=== PATIENT | female | born 2000 | race Caucasian/White ===

== ENCOUNTER → 2023-05-06 09:53 | Outpatient (CLI) | payer OTHER, SELFPAY | PROVIDERS: PCP Physician Assistant Medical; Visit Provider Physician Assistant Medical | DX: J35.1 Hypertrophy of tonsils (principal) | CPT/HCPCS: 87070 ==

== ENCOUNTER 2023-05-06 14:41 | Emergency (ER) | payer OTHER, SELFPAY ==
[2023-05-06 14:50] VITALS: BP 125/78; PULSE 83; RESP 16; TEMP 37.4; O2SAT 99; BMI 25.2
--- NOTE | 2023-05-06 15:59 | DI.CT.S_ITS ---
PROCEDURE: CT SOFT TISSUE NECK W CON INDICATIONS: left neck/jaw pain and swelling, +trismus TECHNIQUE: After the administration of intravenous contrast, 3.0 mm axial sections acquired from the sella to the aortic arch. Additional oblique axial 3.0 mm sections acquired through the pharynx. 3 mm thick coronal and sagittal reformats were generated. For radiation dose reduction, the following was used: automated exposure control. COMPARISON: None. FINDINGS: Image quality: Excellent. Lymph nodes: Shotty bilateral cervical adenopathy, likely reactive, left greater than right. Vessels: Visualized vasculature appears patent. Neck spaces: The oropharynx, nasopharynx, and pharynx demonstrate no mucosal lesions. The vocal cords, false vocal cords, pyriform sinuses, epiglottis, vallecula, and tongue base all appear normal. Extramucosal spaces appear unremarkable. Glands: The parotid and submandibular glands appear normal. Thyroid gland is unremarkable. Miscellaneous: Visualized brain and orbits appear normal. Lung apices appear clear. Superficial soft tissues appear normal. A BB has been placed over the area of swelling and paid, at the level of the lateral left cheek. There is no abnormality identified corresponding to the area except for minimal inflammatory change deep in the subcutaneous fat. Bones: No suspicious bony lesions. Visualized sinuses and mastoids appear unremarkable. IMPRESSION: Question mild cellulitic change involving the deep subcutaneous tissues of the left cheek. No abscess. Shotty bilateral cervical adenopathy, likely reactive, left greater than right. No other significant finding noted. Dictated by: Patrice Adam M.D. on 05/06/2023 at 17:17 Approved by: Patrice Adam M.D. on 05/06/2023 at 17:20
[2023-05-06] MEDS: ACETAMINOPHEN 325 MG TABLET 975 MG PO (16:18)
[2023-05-06] MEDS: IBUPROFEN 400 MG TABLET 800 MG PO (16:19)
[2023-05-06] MEDS: SODIUM CHLORIDE 0.9% 500 ML 1000 ML IV (16:25)
[2023-05-06 16:31] LABS: Add Manual Diff / Slide Review NO; Basophils Absolute Auto 100 /uL (0-100); Basophils Percent Auto 0.4 % (0-2); Eosinophils Absolute Auto 100 /uL (0-450); Eosinophils Percent Auto 0.4 % (2-4); Hematocrit 39.9 % (36-46); Hemoglobin 13.5 g/dL (12.0-16.0); Lymphocytes Absolute Auto 1700 /uL (1100-4500); Lymphocytes Percent Auto 11.9 % (25-40); Mean Corpuscular HGB Conc 33.7 % (30-36); Mean Corpuscular Volume 83.1 fL (80-100); Monocytes Absolute Auto 1000 /uL (0-900); Monocytes Percent Auto 6.6 % (3-14); Neutrophils Absolute Auto 11800 /uL (1500-7000); Neutrophils Percent Auto 80.7 % (50-75); Platelet Count 235 X10^3/uL (150-400); Red Blood Cell Count 4.81 X10^6/uL (4.0-5.2); Red Cell Distribution Width 12.8 % (11.6-14.8); White Blood Cell Count 14.7 X10^3/uL (4.5-11.0)
[2023-05-06 16:49] LABS: BUN Creatinine Ratio 13.8 (6-22); Blood Urea Nitrogen 11 mg/dL (7-17); Calcium 9.8 mg/dL (8.4-10.2); Carbon Dioxide 28 mmol/L (22-32); Chloride 105 mmol/L (98-107); Estimated Glomerular Filt Rate > 60 mL/min (>60); Glucose 83 mg/dL (70-100); HEMOLYSIS < 15 (0-50); Potassium 3.7 mmol/L (3.4-5.1); Sodium 140 mmol/L (137-145)
--- NOTE | 2023-05-06 17:18 | ED.URI ---
HPI - URI/Sore Throat <Chela Thurston PA-C - Last Filed: 05/06/23 18:45> General Chief Complaint: Upper Respiratory Symptoms Stated Complaint: per pt Swollen tonsils, pain Time Seen by Provider: 05/06/23 15:38 History of Present Illness HPI Narrative: Patient is a 22-year-old female who presents with 1 day of left jaw pain and swelling. This started yesterday around noon. She felt swelling and discomfort inside her left mouth. She did not see much with a flashlight. By last night it was much more painful and she was unable to open her jaw. She feels like she has problems with her TMJ and that her some teeth intermittently cause pain. She went to the clinic on [facility] this morning where they did a rapid strep which was negative and sent her here because they could not adequately visualize her posterior oropharynx. She admits that she has not been to the dentist in 5 years but has not been experiencing any dental pain or swelling recently. She denies fever. She has a mild sore throat and has diminished oral intake due to intraoral discomfort and excessive saliva. She denies any difficulty swallowing or managing her secretions. She endorses pain in her left anterior neck. She denies runny nose or cough. No history of chronic medical problems or surgeries. No known allergies. Related Data Previous Rx's Medication Instructions Recorded amoxicillin 875 mg-potassium 1 tab PO BID #14 tabs 05/06/23 clavulanate 125 mg tablet Allergies Allergy/AdvReac Type Severity Reaction Status Date / Time No Known Drug Allergies Allergy Unverified 05/06/23 09:39 Review of Systems <Chela Thurston PA-C - Last Filed: 05/06/23 18:45> Review of Systems ROS Unobtainable: All systems reviewed & are unremarkable except as noted in HPI and below Patient History <Chela Thurston PA-C - Last Filed: 05/06/23 18:45> Social History Smoking Status: Never smoker Smoking Status: Never smoker alcohol intake frequency: a few times a month Substance Use Type: marijuana Exam <Chela Thurston PA-C - Last Filed: 05/06/23 18:45> Narrative Exam Narrative: GENERAL: 22 year old patient appears stated age. Well-developed patient, in no acute distress. NEURO: AOx3. HEAD: Atraumatic. Normocephalic. EYES: Pupils equal round and reactive. Extraocular motions intact. No scleral icterus. No injection or drainage. ENT: Nose without bleeding or purulent drainage. TMs pearly lambert with normal anatomy. No erythema or swelling over the mastoids. Airway patent. Unable to open mouth more than 10 mm. Unable to adequately visualize peritonsillar spaces. Mild visible swelling externally. Patient has tenderness to light palpation over the left mandible, left TMJ and left anterior neck. There is no discrete erythema. There is no fluctuant abscess. No palpable adenopathy. NECK: Trachea midline. RESPIRATORY: No increased work of breathing SKIN: No rash or erythema of visible areas Initial Vital Signs Initial Vital Signs: Vital Signs Temperature 99.3 F 05/06/23 14:50 Pulse Rate 83 05/06/23 14:50 Respiratory Rate 16 05/06/23 14:50 Blood Pressure 125/78 05/06/23 14:50 Pulse Oximetry 99 05/06/23 14:50 Oxygen Delivery Method Room Air 05/06/23 14:50 <Elodia Mendez MD - Last Filed: 05/07/23 07:56> Initial Vital Signs Initial Vital Signs: Vital Signs Temperature 99.3 F 05/06/23 14:50 Pulse Rate 83 05/06/23 14:50 Respiratory Rate 16 05/06/23 14:50 Blood Pressure 125/78 05/06/23 14:50 Pulse Oximetry 99 05/06/23 14:50 Oxygen Delivery Method Room Air 05/06/23 14:50 Course <Chela Thurston PA-C - Last Filed: 05/06/23 18:45> Orders Ordered: Discontinued Medications Acetaminophen (Acetaminophen 325 Mg Tablet) 975 mg PO NOW ONE Stop: 05/06/23 15:59 Last Admin: 05/06/23 16:18 Dose: 975 mg Documented By: PRO Sodium Chloride (Normal Saline 0.9%) 500 mls @ 1,000 mls/hr IV BOLUS ONE Stop: 05/06/23 16:27 Last Infusion: 05/06/23 17:15 Dose: Infused Documented By: Admin: 05/06/23 16:25 Dose: 1,000 mls/hr Documented By: PRO Ibuprofen (Ibuprofen 400 Mg Tablet) 800 mg PO NOW ONE Stop: 05/06/23 15:59 Last Admin: 05/06/23 16:19 Dose: 800 mg Documented By: PRO Vital Signs Vital signs: Vital Signs - 8 hr 05/06/23 14:50 05/06/23 18:04 Temperature 99.3 F Pulse Rate 83 75 Respiratory Rate 16 16 Blood Pressure 125/78 113/58 L Pulse Oximetry 99 99 Oxygen Delivery Method Room Air Room Air <Elodia Mendez MD - Last Filed: 05/07/23 07:56> Orders Ordered: Discontinued Medications Acetaminophen (Acetaminophen 325 Mg Tablet) 975 mg PO NOW ONE Stop: 05/06/23 15:59 Last Admin: 05/06/23 16:18 Dose: 975 mg Documented By: PRO Sodium Chloride (Normal Saline 0.9%) 500 mls @ 1,000 mls/hr IV BOLUS ONE Stop: 05/06/23 16:27 Last Infusion: 05/06/23 17:15 Dose: Infused Documented By: Admin: 05/06/23 16:25 Dose: 1,000 mls/hr Documented By: PRO Ibuprofen (Ibuprofen 400 Mg Tablet) 800 mg PO NOW ONE Stop: 05/06/23 15:59 Last Admin: 05/06/23 16:19 Dose: 800 mg Documented By: PRO Vital Signs Vital signs: Vital Signs - 8 hr 05/06/23 14:50 05/06/23 18:04 Temperature 99.3 F Pulse Rate 83 75 Respiratory Rate 16 16 Blood Pressure 125/78 113/58 L Pulse Oximetry 99 99 Oxygen Delivery Method Room Air Room Air MDM - URI/Sore Throat <Chela Thurston PA-C - Last Filed: 05/06/23 18:45> Lab Data 05/06/23 16:10 05/06/23 16:10 Labs: Lab Results 05/06/23 Range/Units 16:10 WBC 14.7 H (4.5-11.0) X10^3/uL RBC 4.81 (4.0-5.2) X10^6/uL Hgb 13.5 (12.0-16.0) g/dL Hct 39.9 (36-46) % MCV 83.1 (80-100) fL MCH 28.0 (26-34) PG MCHC 33.7 (30-36) % RDW 12.8 (11.6-14.8) % Plt Count 235 (150-400) X10^3/uL Neut % (Auto) 80.7 H (50-75) % Lymph % (Auto) 11.9 L (25-40) % Labette % (Auto) 6.6 (3-14) % Eos % (Auto) 0.4 L (2-4) % Baso % (Auto) 0.4 (0-2) % Neut # (Auto) 11361 H (9285-4329) /uL Lymph # (Auto) 1700 (2942-0019) /uL Labette # (Auto) 1000 H (0-900) /uL Eos # (Auto) 100 (0-450) /uL Baso # (Auto) 100 (0-100) /uL Sodium 140 (137-145) mmol/L Potassium 3.7 (3.4-5.1) mmol/L Chloride 105 (98-107) mmol/L Carbon Dioxide 28 (22-32) mmol/L BUN 11 (7-17) mg/dL Creatinine 0.80 (0.52-1.04) mg/dL Estimated GFR > 60 (>60) mL/min BUN/Creatinine Ratio 13.8 (6-22) Glucose 83 (70-100) mg/dL Calcium 9.8 (8.4-10.2) mg/dL Point of Care Testing Test Results Negative Imaging Data CT soft tissue neck: Radiologist's Impression: PROCEDURE: CT SOFT TISSUE NECK W CON INDICATIONS: left neck/jaw pain and swelling, +trismus TECHNIQUE: After the administration of intravenous contrast, 3.0 mm axial sections acquired from the sella to the aortic arch. Additional oblique axial 3.0 mm sections acquired through the pharynx. 3 mm thick coronal and sagittal reformats were generated. For radiation dose reduction, the following was used: automated exposure control. COMPARISON: None. FINDINGS: Image quality: Excellent. Lymph nodes: Shotty bilateral cervical adenopathy, likely reactive, left greater than right. Vessels: Visualized vasculature appears patent. Neck spaces: The oropharynx, nasopharynx, and pharynx demonstrate no mucosal lesions. The vocal cords, false vocal cords, pyriform sinuses, epiglottis, vallecula, and tongue base all appear normal. Extramucosal spaces appear unremarkable. Glands: The parotid and submandibular glands appear normal. Thyroid gland is unremarkable. Miscellaneous: Visualized brain and orbits appear normal. Lung apices appear clear. Superficial soft tissues appear normal. A BB has been placed over the area of swelling and paid, at the level of the lateral left cheek. There is no abnormality identified corresponding to the area except for minimal inflammatory change deep in the subcutaneous fat. Bones: No suspicious bony lesions. Visualized sinuses and mastoids appear unremarkable. IMPRESSION: Question mild cellulitic change involving the deep subcutaneous tissues of the left cheek. No abscess. Shotty bilateral cervical adenopathy, likely reactive, left greater than right. No other significant finding noted. Dictated by: Patrice Adam M.D. on 05/06/2023 at 17:17 Approved by: Patrice Adam M.D. on 05/06/2023 at 17:20 [facility] Narrative Medical decision making narrative: Multiple etiologies for patient's symptoms considered including, but not limited to: Peritonsillar abscess, neck deep space infection, dental infection, Roberto angina Patient with significant trismus limiting physical examination as well as tenderness into the neck. Discussed increased suspicion for severe infection, especially since patient lives at [facility], which warrants thorough workup. Patient agreeable to labs, IV fluid bolus and CT scan after discussion. Labs show WBC 15k with left shift, chemistry within normal limits. Rapid strep on [place] from this morning is negative. CT shows possible cellulitis of the left cheek with cervical adenopathy. There is no evidence of abscess. Discussed the findings with the patient. I will prescribe a course of Augmentin x7 days. Advised to seek dental care for evaluation of possible odontogenic source of infection, as patient recalls no dental care in at least 5 years and reports intermittent dental pain. Discussed return precautions. Patient's symptoms improved over duration of stay with above-stated therapies. Findings and discharge diagnosis discussed with patient/family followed by verbalization of understanding Return precautions discussed with patient/family whom verbalize understanding of diagnosis and plan <Elodia Mendez MD - Last Filed: 05/07/23 07:56> Lab Data Labs: Lab Results 05/06/23 Range/Units 16:10 WBC 14.7 H (4.5-11.0) X10^3/uL RBC 4.81 (4.0-5.2) X10^6/uL Hgb 13.5 (12.0-16.0) g/dL Hct 39.9 (36-46) % MCV 83.1 (80-100) fL MCH 28.0 (26-34) PG MCHC 33.7 (30-36) % RDW 12.8 (11.6-14.8) % Plt Count 235 (150-400) X10^3/uL Neut % (Auto) 80.7 H (50-75) % Lymph % (Auto) 11.9 L (25-40) % Labette % (Auto) 6.6 (3-14) % Eos % (Auto) 0.4 L (2-4) % Baso % (Auto) 0.4 (0-2) % Neut # (Auto) 48416 H (3994-0010) /uL Lymph # (Auto) 1700 (1731-8782) /uL Labette # (Auto) 1000 H (0-900) /uL Eos # (Auto) 100 (0-450) /uL Baso # (Auto) 100 (0-100) /uL Sodium 140 (137-145) mmol/L Potassium 3.7 (3.4-5.1) mmol/L Chloride 105 (98-107) mmol/L Carbon Dioxide 28 (22-32) mmol/L BUN 11 (7-17) mg/dL Creatinine 0.80 (0.52-1.04) mg/dL Estimated GFR > 60 (>60) mL/min BUN/Creatinine Ratio 13.8 (6-22) Glucose 83 (70-100) mg/dL Calcium 9.8 (8.4-10.2) mg/dL Point of Care Testing Test Results Negative Discharge Plan Departure Patient Disposition: Home Clinical Impression: Cellulitis of left internal cheek, Cervical adenopathy Instructions: How to Use Antibiotics Wisely Activity Restrictions/Additional Instructions: *You have been diagnosed with an infection in your left cheek, likely from an dental infection. There is evidence of enlarged lymph nodes, which is likely causing the swelling and tenderness over your left jaw and neck. I have prescribed a course of antibiotics which should clear this up. You will take 1 pill twice a day for 7 days. Take all the antibiotics even if you feel better. Drink plenty of water and get rest. If, after you have been taking the antibiotics for 48 hours, you develop fevers, worsening pain or swelling, please return for reassessment as this means antibiotics are not working. If you develop any severe symptoms such as difficulty breathing, drooling, inability to swallow, please return to the emergency department. *What to do: *Please continue to take your regular medications as directed. [x] New medication prescriptions sent to your pharmacy: [facility] [ ] New medication written as a paper prescription [ ] No new medications given *Please follow up with your primary care provider in 2-3 days, call for an appointment. Let them know you were seen in the Emergency Department and that we ask that you be seen in follow up. We will electronically transmit a record of today's note if your PCP is in our system *If you do not have a primary care provider please contact the [facility] Resource line at [phone]. They will ask some questions about your medical history and help get you set up with a doctor in the community. *Return to Emergency Department if you should have any new, worsening or concerning symptoms, such as [fever greater than 101 F, shaking chills, worsening pain, persistent vomiting or other concerning symptoms]. Prescriptions: New amoxicillin-pot clavulanate 875-125 mg tablet 1 tab PO BID Qty: 14 0RF Referrals: Basia Gil PA-C [Primary Care Provider] - Stand Alone Forms: Patient Portal/API ED Sign-out <Elodia Mendez MD - Last Filed: 05/07/23 07:56> Cosign ED Attending Javierature Attestation: I was immediately available in the department for consultation throughout this patient's visit. Elodia Mendez MD
[2023-05-06 18:04] VITALS: BP 113/58; PULSE 75; RESP 16; O2SAT 99
== END 2023-05-06 18:05 | disposition home or self-care (01) ==
PROVIDERS: Emergency Provider Physician Assistant; PCP Physician Assistant Medical
DX: K12.2 Cellulitis and abscess of mouth (principal); R59.0 Localized enlarged lymph nodes; J35.1 Hypertrophy of tonsils
CPT/HCPCS: 36415; 70491; 80048; 81025; 85025; 87070; 99284; Q9967